=== PATIENT | male | born 1995 | race Caucasian/White ===

== ENCOUNTER 2021-01-05 07:56 | Emergency (ER) | payer OTHER ==
[2021-01-05 12:06] LABS: Absolute Lymphocytes (CBC) 1.5 K/uL (0.7-4.9); Basophils % 0.8 % (0-1.3); Lymphocytes % 17.9 % (15.3-44.8); MPV 8.4 fL (7.6-11.3); RBC Red Blood Cell Count 4.92 M/uL (4.33-5.43)
[2021-01-05 12:14] LABS: BUN Blood Urea Nitrogen 13 mg/dL (7-18); Bicarbonate 23 mmol/L (21-32); Glucose Level 75 mg/dL (74-106); Potassium 3.9 mmol/L (3.5-5.1); Sodium Level 137 mmol/L (136-145)
[2021-01-05] MEDS ORDERED: MORPHINE 2 MG/ML SYR ONE ×2 (12:18→17:06)
[2021-01-05] MEDS ORDERED: CLINDAMYCIN 600MG/D5W 600 MG/50 ML BAG IV ONE (12:18)
--- NOTE | 2021-01-05 15:52 | RAD REPORT ---
EXAM DESCRIPTION: CT - CTFBWCON CLINICAL HISTORY: left lower jaw swelling Jaw pain and swelling. COMPARISON: No comparisons TECHNIQUE: Axial 2 mm thick images of the face were obtained with sagittal and coronal reconstructio n images. All CT scans are performed using dose optimization technique as appropriate and may include automated exposure control or mA/KV adjustment according to patient size. FINDINGS: There is a small periapical abscess measuring 2-3 mm involving the left mandibular first m olar.This extends into a left buccal surface subperiosteal abscess measuring 22 x 11 mm. The adjacent soft tissues are significantly thickened edematous. The globes and orbital contents are grossly unremarkable.Mild mucosal thickening involving the inferi or left maxillary antrum IMPRESSION: Small periapical abscess involving the left mandibular first molar.There is an associate d 22 x 11 mm subperiosteal odontogenic abscess along the buccal surface of the left mandible.
--- NOTE | 2021-01-05 17:39 | ER ---
Nurse's Notes [facility] Name: Aftab Peres Jr Age: 25 yrs Sex: Male : 1995 Arrival Date: 01/05/2021 Time: 08:15 Bed 24 Private MD: Diagnosis: Disorder of teeth and supporting structures, unspecified-dental abscess;Cellulitis of face Presentation: 01/05 10:07 Chief complaint: Patient states: Pt Autistic, mother giving information. Pt has left da3 mouth Abscess mother states secondary to PT loosing a filling. Issue became evident on Tuesday. Coronavirus screen: Client denies travel out of the [place] in the last 14 days. At this time, the client does not indicate any symptoms associated with coronavirus-19. Ebola Screen: Patient negative for fever greater than or equal to 101.5 degrees Fahrenheit, and additional compatible Ebola Virus Disease symptoms. Onset of symptoms was January 02, 2021. Mechanism of Injury: No Mechanism of Injury. 10:07 Method Of Arrival: Ambulatory da3 10:07 Acuity: LUIS 3 da3 17:53 Initial Sepsis Screen: Does the patient meet any 2 criteria? No. Patient's initial ld1 sepsis screen is negative. Does the patient have a suspected source of infection? No. Patient's initial sepsis screen is negative. Risk Assessment: Do you want to hurt yourself or someone else? Patient reports no desire to harm self or others. Triage Assessment: 10:18 General: Appears in no apparent distress. comfortable. Pain: Unable to use pain scale. da3 Historical: - Allergies: 10:16 Ceclor; da3 - Social history:: Smoking status: Patient denies any tobacco usage or history of. - Coronavirus screen:: The patient has NOT traveled to [place] in the past 14 days. The patient has NOT had contact with known/suspected case of Coronavirus?. Screenin:38 Abuse screen: Denies threats or abuse. Denies injuries from another. Nutritional ld1 screening: No deficits noted. Tuberculosis screening: No symptoms or risk factors identified. Fall Risk None identified. Assessment: 13:37 General: Appears in no apparent distress. comfortable, Behavior is calm, cooperative, ld1 appropriate for age. Pain: Denies pain. Pain: Complains of pain in left buccal mucosa Pain does not radiate. Pain currently is 8 out of 10 on a pain scale. Quality of pain is described as throbbing, Pain began gradually, Is continuous. Neuro: Level of Consciousness is awake, alert, Oriented to person. Cardiovascular: Capillary refill < 3 seconds Patient's skin is warm and dry. Respiratory: Airway is patent Respiratory effort is even, unlabored, Respiratory pattern is regular, symmetrical. GI: Abdomen is flat, non-distended. : No signs and/or symptoms were reported regarding the genitourinary system. EENT: No signs and/or symptoms were reported regarding the EENT system. Derm: No signs and/or symptoms reported regarding the dermatologic system. Musculoskeletal: No signs and/or symptoms reported regarding the musculoskeletal system. 15:47 Reassessment: Patient appears in no apparent distress at this time. Patient and/or ld1 family updated on plan of care and expected duration. Pain level reassessed. Patient is alert/active/playful, equal unlabored respirations, skin warm/dry/pink. 17:00 Reassessment: Patient appears in no apparent distress at this time. No changes from ld1 previously documented assessment. Patient and/or family updated on plan of care and expected duration. Pain level reassessed. 17:52 Reassessment: Patient appears in no apparent distress at this time. Patient is alert, ld1 oriented x 3, equal unlabored respirations, skin warm/dry/pink. Vital Signs: 10:07 Pulse 117; Resp 18; Pulse Ox 97% on R/A; da3 10:19 Pulse 117; Resp 18; Pulse Ox 97% on R/A; da3 12:30 Pulse 112; Resp 20; Pulse Ox 99% on R/A; ld1 13:38 Pulse 106; Resp 18; Pulse Ox 100% ; ld1 15:47 BP 136 / 108; Pulse 112; Resp 18; Pulse Ox 98% on R/A; ld1 17:52 Pulse 118; Resp 18; Pulse Ox 100% on R/A; ld1 10:07 Pt would not allow BP or temp to be obtained. da3 10:19 Pt would not allow BP and Temp. da3 ED Course: 08:15 Patient arrived in ED. am2 10:16 Triage completed. da3 10:39 Iraj Hernandez PA is PHCP. cp 10:39 Stanley Tabor MD is Attending Physician. cp 10:39 Zoya Huerta, RN is Primary Nurse. iw 11:44 Initial lab(s) drawn, by me, sent to lab. Inserted saline lock: 20 gauge in right em1 wrist, using aseptic technique. Blood collected. 13:38 No provider procedures requiring assistance completed. ld1 13:38 Patient has correct armband on for positive identification. Bed in low position. Call ld1 light in reach. Side rails up X2. Adult w/ patient. Pulse ox on. Door closed. Noise minimized. Warm blanket given. 13:50 Arm band placed on. iw 15:06 CT Facial Bones W/ Con \T\ Mpr In Process Unspecified. EDMS 16:06 initiated transfer to [facility]. bd 16:16 pt denied at [facility] due to being at capacity at all [facility] hospitals. per Hao. bd 16:16 initiated transfer to [facility]. bd 16:25 pt denied at [facility] due to [facility] and [facility] hospital being at capacity. per Amara.bd 16:42 initiated transfer to [facility]. bd 16:52 pt denied at [facility] due to all [facility] being at capacity, per Kathryn Ayala. bd 16:56 initiated transfer to [facility], pt denied due to hospital ER being at capacity. bd (maxilofacial pts go to the ER). 17:08 per Ewelina. bd 17:52 IV discontinued, intact, bleeding controlled, No redness/swelling at site. Pressure iw dressing applied. Administered Medications: 12:01 Drug: Clindamycin 600 mg Route: IVPB; Infused Over: 30 mins; Site: right hand; iw 12:30 Follow up: IV Status: Completed infusion iw 12:01 Drug: morphine 2 mg Route: IVP; Site: right hand; iw 12:30 Follow up: Response: No adverse reaction iw Outcome: 17:38 Discharge ordered by . cp 17:53 Discharged to home ambulatory, with family. ld1 17:53 Condition: stable 17:53 Discharge instructions given to patient, family, Instructed on discharge instructions, follow up and referral plans. medication usage, Demonstrated understanding of instructions, follow-up care, medications, Prescriptions given X 1. 17:53 Patient left the ED. iw Signatures: Dispatcher [employer] EDMS Grace Delong bd Zoya Huerta, RN Macario Reed em1 Iraj Hernandez PA PA cp Moreno, Amanda am2 Svetlana Collado, RN RN ld1 Gunnar Gomez, RN RN da3
--- NOTE | 2021-01-05 17:39 | EDPHYS ---
Physician Documentation [facility] Name: Aftab Peres Jr Age: 25 yrs Sex: Male : 1995 Arrival Date: 01/05/2021 Time: 08:15 Bed 24 Private MD: ED Physician Stanley Tabor HPI: 01/05 10:55 This 25 yrs old Male presents to ER via Ambulatory with complaints of Abscess.cp 10:55 the patient presents with a swollen area of the left lower jaw. cp 10:55 Description: swollen. cp 10:55 Onset: The symptoms/episode began/occurred 3 day(s) ago. cp 10:55 Associated signs and symptoms: Pertinent positives: difficulty eating, left lower jaw cp pain, Pertinent negatives: fever. Historical: - Allergies: 10:16 Ceclor; da3 - Social history:: Smoking status: Patient denies any tobacco usage or history of. - Coronavirus screen:: The patient has NOT traveled to [place] in the past 14 days. The patient has NOT had contact with known/suspected case of Coronavirus?. ROS: 11:00 Constitutional: Negative for fever. cp 11:00 Eyes: Negative for injury, pain, redness, and discharge. cp 11:00 ENT: Positive for dental pain, left lower jaw swelling and pain, Negative for difficulty swallowing, difficulty handling secretions. 11:00 Respiratory: Negative for cough. 11:00 Abdomen/GI: Negative for vomiting, diarrhea, constipation. 11:00 All other systems are negative. cp Exam: 11:05 Constitutional: The patient appears in no acute distress, alert, awake, non-toxic, well cp developed. 11:05 Head/face: Noted is swelling, that is mild, of the left mandible, tenderness, that is cp moderate, of the left mandible. 11:05 Eyes: Periorbital structures: appear normal, Conjunctiva: normal, no exudate, no injection, Sclera: no appreciated abnormality, Lids and lashes: appear normal, bilaterally. 11:05 ENT: External ear(s): are unremarkable, Ear canal(s): are normal, clear, TM's: dullness, bilaterally, Nose: is normal, Mouth: Lips: moist, Oral mucosa: moist, Gums: swollen, on the legft lower outer gumline, Tongue: is normal, abscess, that is moderate, of the left lower outer gumline, drooling, is not appreciated, Posterior pharynx: Airway: no evidence of obstruction, patent, Dental exam: dental caries, that is moderate, diffusely, pain, that is moderate, specifically in the lower left first molar (#19). 11:05 Neck: ROM/movement: is normal, is supple, no meningismus, no nuchal rigidity. 11:05 Chest/axilla: Inspection: normal. 11:05 Cardiovascular: Rate: tachycardic, Rhythm: regular. 11:05 Respiratory: the patient does not display signs of respiratory distress, Respirations: normal, no use of accessory muscles, no retractions, labored breathing, is not present, Breath sounds: are clear throughout, no decreased breath sounds. 11:05 Abdomen/GI: Exam negative for discomfort, distension, guarding, Inspection: abdomen appears normal. 11:05 Skin: no rash present. Vital Signs: 10:07 Pulse 117; Resp 18; Pulse Ox 97% on R/A; da3 10:19 Pulse 117; Resp 18; Pulse Ox 97% on R/A; da3 12:30 Pulse 112; Resp 20; Pulse Ox 99% on R/A; ld1 13:38 Pulse 106; Resp 18; Pulse Ox 100% ; ld1 15:47 BP 136 / 108; Pulse 112; Resp 18; Pulse Ox 98% on R/A; ld1 17:52 Pulse 118; Resp 18; Pulse Ox 100% on R/A; ld1 10:07 Pt would not allow BP or temp to be obtained. da3 10:19 Pt would not allow BP and Temp. da3 Procedures: 18:00 I \T\ D: Incision and drainage was performed for an abscess of the left lower outer cp gumline Drained 2.5 mLs the patient tolerated the procedure well, area drained with 10 cc syringe attached to 18 gauge needle. MDM: 10:41 Patient medically screened. cp 11:00 Differential diagnosis: abscess, cellulitis, sepsis. cp 17:37 Data reviewed: vital signs, nurses notes, lab test result(s), radiologic studies, CT cp scan, I have discussed the patient's presentation/case with the attending Emergency Department Physician; and as a result, I will discharge patient. 17:37 Counseling: I had a detailed discussion with the patient and/or guardian regarding: the cp historical points, exam findings, and any diagnostic results supporting the discharge/admit diagnosis, lab results, radiology results, the need for outpatient follow up, a dentist, to return to the emergency department if symptoms worsen or persist or if there are any questions or concerns that arise at home. Response to treatment: the patient's symptoms have mildly improved after treatment, and as a result, I will discharge patient. 01/05 10:48 Order name: CBC with Diff; Complete Time: 12:22 cp 01/05 10:48 Order name: BMP; Complete Time: 12:22 cp 01/05 12:23 Interpretation: Normal except: CL 109. cp 01/05 10:48 Order name: IV; Complete Time: 11:43 cp 01/05 14:41 Order name: CT Facial Bones W/ Con \T\ Mpr; Complete Time: 15:58 cp 01/05 15:18 Order name: Vital Signs: please recheck to include blood pressure; Complete Time: 15:48 cp Administered Medications: 12:01 Drug: Clindamycin 600 mg Route: IVPB; Infused Over: 30 mins; Site: right hand; iw 12:30 Follow up: IV Status: Completed infusion iw 12:01 Drug: morphine 2 mg Route: IVP; Site: right hand; iw 12:30 Follow up: Response: No adverse reaction iw Disposition: 17:58 Co-signature as Attending Physician, Stanley Tabor MD I agree with the assessment and kdr plan of care. 18:00 Chart complete. cp Disposition Summary: 01/05/21 17:38 Discharge Ordered Location: Home cp Problem: new cp Symptoms: have improved cp Condition: Stable cp Diagnosis - Disorder of teeth and supporting structures, unspecified - dental abscess cp - Cellulitis of face cp Followup: cp - With: Private Physician - When: Tomorrow - Reason: Recheck today's complaints Discharge Instructions: - Discharge Summary Sheet cp - Cellulitis, Adult cp - Dental Abscess cp Forms: - Medication Reconciliation Form cp - Thank You Letter cp - Antibiotic Education cp - Prescription Opioid Use cp Prescriptions: - Clindamycin HCl 300 mg Oral Capsule - take 1 capsule by ORAL route every 6 hours for 10 days; 40 capsule; Refills: 0, cp Product Selection Permitted Signatures: Dispatcher [facility] HospitalStanley Thibodeaux MD MD kdr Zoya Huerta RN RN iw Iraj Hernandez PA PA cp Dibbern, Lauren, RN RN ld1 Gunnar Gomez, RN RN da3
[2021-01-05] MEDS ORDERED: LIDOCAINE 1% W/EPI 1:100,000 MDV 20 ML VIAL ONE (17:43)
[2021-01-05] MEDS ORDERED: LORazepam 2 MG/ML VIAL ONE (17:43)
[2021-01-05 18:06] VITALS: BP 136/108
[2021-01-05 18:07] VITALS: O2SAT 100
== END 2021-01-05 17:53 | disposition home or self-care (01) ==
LOC: ER 07:56
PROC: 0C96XZZ Drainage of Lower Gingiva, External Approach (ICD-10-PCS; principal; 2021-01-05)
DX: K04.7 Periapical abscess without sinus (principal); L03.211 Cellulitis of face; Z88.1 Allergy status to other antibiotic agents
CPT/HCPCS: 85025; 80048; 36415; 70487; 76377; 41800; Q9967; J2270 ×2